=== PATIENT | female | born 1980 | race Caucasian/White ===

== ENCOUNTER 2018-01-26 18:48 | Emergency (ER) | payer BC ==
[2018-01-26] MEDS ORDERED: Cyclobenzaprine 10 MG Tab PO ONE (18:49)
--- NOTE | 2018-01-26 20:18 | EDM.PDOC ---
ED HPI GENERAL MEDICAL PROBLEM - General Chief Complaint: Head Injury Stated Complaint: [id number] CUT FINGER- HEAD AND SHOULDER INJURY 01/22 Time Seen by Provider: 01/26/18 20:15 Source of Information: Reports: Patient History Limitations: Reports: No Limitations - History of Present Illness INITIAL COMMENTS - FREE TEXT/NARRATIVE: This 37 yo female patient reports to the ED with a laceration to her left 4th finger and intermittent "zaps" from her brain. The patient reports she cut her hand while cutting rhubarb just prior to her arrival in the ED. The patient also reports that she fell on Thursday (01/22/18) while playing tag with her 4 year old. Since the fall, the patient has noticed intermittent dizziness and perceived "zaps" down her arms and legs. The patient reports she has these sensations about every 5-20 seconds. The patient describes them as electric zaps. Onset: Today (laceration), Other (head/neck injury (01/22/18)) Location: Reports: Upper Extremity, Left (laceration), Generalized ("zaps") Quality: Reports: Other Severity: Moderate Improves with: Reports: None Worsens with: Reports: None Associated Symptoms: Reports: No Other Symptoms Right Shoulder Pain Score (Numeric/FACES): 7 - Related Data Allergies Allergy/AdvReac Type Severity Reaction Status Date / Time Sulfa (Sulfonamide Allergy Rash Verified 01/26/18 19:48 Antibiotics) Home Meds: Home Meds Multivitamin [Multivitamins] 1 each PO DAILY 01/26/18 [History] Venlafaxine HCl [Venlafaxine ER] 225 mg PO DAILY 01/26/18 [History] 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 ED EXAM, HEAD INJURY - Physical Exam Exam: See Below Exam Limited By: No Limitations General Appearance: Alert, WD/WN, Moderate Distress Head: Atraumatic, Normocephalic Nexus Criteria: No: Posterior, Midline Cervical Tenderness, Evidence of Intoxication, Altered Level of Consciousness, Focal Neurological Deficit, Painful Distraction Injuries Eyes: Bilateral Eye: EOMI, Normal Inspection, PERRL Ears: Normal External Exam, Normal Canal, Hearing Grossly Normal, Normal TMs Nose: Normal Inspection, Normal Mucousa, No Blood Throat/Mouth: Normal Inspection, Normal Lips, Normal Teeth, Normal Gums, Normal Oropharynx, Normal Voice, No Airway Compromise Neck: Non-Tender, Full Range of Motion, Normal Alignment, Normal Inspection Respiratory: No Respiratory Distress, Lungs Clear, Normal Breath Sounds, No Accessory Muscle Use, Chest Non-Tender Cardiovascular: Normal Peripheral Pulses, Regular Rate, Rhythm, No Edema, No Gallop, No JVD, No Murmur, No Rub GI/Abdominal Exam: Normal Bowel Sounds, Soft, Non-Tender, No Organomegaly, No Distention, No Abnormal Bruit, No Mass (Female) Exam: Deferred Rectal (Female) Exam: Deferred Back Exam: Full Range of Motion, Normal Inspection, NT Extremities: Normal Inspection, Normal Range of Motion, Non-Tender, No Pedal Edema, Normal Capillary Refill 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, Alert, Normal Mood/Affect, Oriented x 3 Skin: Normal Color, Warm/Dry - [place] Coma Score Best Eye Response (Sally): (4) Open Spontaneously Best Verbal Response ([place]): (5) Oriented Best Motor Response (Sally): (6) Obeys Commands Sally Total: 15 Course - Vital Signs Last Recorded V/S: Last Vital Signs Temp 36.7 C 01/26/18 19:42 Pulse 106 H 01/26/18 19:42 Resp 18 01/26/18 19:42 BP 126/69 01/26/18 19:42 Pulse Ox 99 01/26/18 19:42 - Orders/Labs/Meds Labs: Laboratory Tests 01/26/18 Range/Units 20:20 Urine HCG, Qual Negative Meds: Medications Discontinued Medications Generic Name Dose Route Start Last Admin Trade Name Freq PRN Reason Stop Dose Admin Ketorolac Tromethamine 30 mg 01/26/18 21:29 Toradol IM 01/26/18 21:30 ONETIME ONE Departure - Departure Time of Disposition: 21:32 Disposition: Home, Self-Care 01 Condition: Fair Clinical Impression: Neuropathy - Discharge Information Instructions: Peripheral Neuropathy Referrals: Lucia Gore MD [Primary Care Provider] - Forms: ED Department Discharge Care Plan Goals: The patient was advised of the examination, lab, CT and x-ray results during the visit. The patient was given an injection of Toradol while in the ED. The patient was discharged with Flexeril (10 mg) #1 to take at bedtime and a script for Toradol (10 mg) #20 to take 1 by mouth every 6 hours and Flexeril (10 mg) # 10 to take 1 by mouth at bedtime as needed. If the patient has any additional symptoms or concerns, the patient should follow-up with her primary care facility or return to the emergency department.
[2018-01-26] MEDS ORDERED: Ketorolac 30 MG/ML SDV IM ONE (21:29)
[2018-01-26] MEDS ORDERED: Cyclobenzaprine 10 MG Tab ONE (21:33)
== END 2018-01-26 21:51 | disposition home or self-care (01) ==
LOC: DL.ED 18:48
DX: G62.9 Polyneuropathy, unspecified (principal); Z88.2 Allergy status to sulfonamides
CPT/HCPCS: 70450; 72125; 73030; 81025; 96372; 99284; A9270; J1885

== ENCOUNTER 2019-08-13 05:35 | Emergency (ER) | payer BC ==
--- NOTE | 2019-08-13 05:46 | EDM.PDOC ---
<Leonides Navarro - Last Filed: 08/13/19 05:44> ED HPI GENERAL MEDICAL PROBLEM - General Chief Complaint: Genitourinary Problem Stated Complaint: KIDNEY HURTS Time Seen by Provider: 08/13/19 05:44 Source of Information: Reports: Patient History Limitations: Reports: No Limitations - History of Present Illness INITIAL COMMENTS - FREE TEXT/NARRATIVE: onset UTI Sx Thursday then last night 11pm left flank pain. denies h/o kidney problems. Bilateral Flank Pain Score (Numeric/FACES): 10 - Related Data Allergies Allergy/AdvReac Type Severity Reaction Status Date / Time Sulfa (Sulfonamide Allergy Rash Verified 08/13/19 05:37 Antibiotics) Home Meds: Home Meds Multivitamin [Multivitamins] 1 each PO DAILY 01/26/18 [History] Venlafaxine HCl [Venlafaxine ER] 225 mg PO DAILY 01/26/18 [History] Past Medical History HEENT History: Reports: Impaired Vision Cardiovascular History: Reports: Arrhythmia, Other (See Below) Other Cardiovascular History: HX OF PVC'S. 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 RIGHT OVARIAN CYST Musculoskeletal History: Reports: Other (See Below) Other Musculoskeletal History: SHOULDER INJURY Neurological History: Reports: None Psychiatric History: Reports: Anxiety, Depression, Panic Attack Endocrine/Metabolic History: Reports: None Hematologic History: Reports: None Immunologic History: Reports: None Oncologic (Cancer) History: Reports: None Dermatologic History: Reports: None - Infectious Disease History Infectious Disease History: Reports: Chicken Pox - Past Surgical History Head Surgeries/Procedures: Reports: None HEENT Surgical History: Reports: None Cardiovascular Surgical History: Reports: None Respiratory Surgical History: Reports: None GI Surgical History: Reports: Appendectomy Female Surgical History: Reports: None Endocrine Surgical History: Reports: None Neurological Surgical History: Reports: None Musculoskeletal Surgical History: Reports: None Oncologic Surgical History: Reports: None Dermatological Surgical History: Reports: None Social & Family History - Family History Family Medical History: Noncontributory - Tobacco Use Smoking Status *Q: Never Smoker - Caffeine Use Caffeine Use: Reports: Coffee, Tea Other Caffeine Use: AVERAGE OF 2 CUPS DAILY - Recreational Drug Use Recreational Drug Use: No ED ROS GENERAL - Review of Systems Review Of Systems: Comprehensive ROS is negative, except as noted in HPI. ED EXAM, RENAL/ - Physical Exam Exam: See Below Exam Limited By: No Limitations General Appearance: Alert, WD/WN, Mild Distress, Other (discomfort). No: Active Emesis Ears: Hearing Grossly Normal Throat/Mouth: Normal Voice, No Airway Compromise Head: Atraumatic Neck: Non-Tender, Full Range of Motion Respiratory/Chest: No Respiratory Distress Cardiovascular: Regular Rate, Rhythm GI/Abdominal: Tender, Other (suprapubic). No: Distended, Guarding, Rigid, Rebound Back Exam: CVA Tenderness (L) Neurological: Alert, Oriented, Normal Cognition, Normal Gait, No Motor/Sensory Deficits Psychiatric: Flat Affect Skin Exam: Warm, Dry, Normal Color Lymphatic: No Adenopathy Course - Vital Signs Last Recorded V/S: Last Vital Signs Temp 36.4 C 08/13/19 05:41 Pulse 95 08/13/19 05:41 Resp 16 08/13/19 05:41 BP 122/88 08/13/19 05:41 Pulse Ox 100 08/13/19 05:41 - Orders/Labs/Meds Orders: Active Orders 24 hr Category Date Time Status Abdomen Pelvis wo Cont [CT] Urgent Exams 08/13/19 06:14 Taken CULTURE URINE [RM] Stat Lab 08/13/19 05:33 Received Labs: Laboratory Tests 08/13/19 08/13/19 08/13/19 Range/Units 05:33 05:33 05:33 WBC (5.0-10.0) 10^3/uL RBC (4.2-5.4) 10^6/uL Hgb (12.0-16.0) g/dL Hct (37.0-47.0) % MCV (80-100) fL MCH (27.0-34.0) pg MCHC (33.0-35.0) g/dL Plt Count (150-450) 10^3/uL Neut % (Auto) (42.2-75.2) % Lymph % (Auto) (20.5-50.1) % [place] % (Auto) (2-8) % Eos % (Auto) (1.0-3.0) % Baso % (Auto) (0.0-1.0) % Sodium (135-145) mmol/L Potassium (3.6-5.0) mmol/L Chloride (101-111) mmol/L Carbon Dioxide (21.0-31.0) mmol/L Anion Gap BUN (7-18) mg/dL Creatinine (0.6-1.3) mg/dL Est Cr Clr Drug Dosing mL/min Estimated GFR (MDRD) BUN/Creatinine Ratio Glucose (74-105) mg/dL Calcium (8.4-10.2) mg/dl Total Bilirubin (0.2-1.0) mg/dL AST (10-42) IU/L ALT (10-60) IU/L Alkaline Phosphatase (42-121) IU/L Total Protein (6.7-8.2) g/dl Albumin (3.2-5.5) g/dl Globulin Albumin/Globulin Ratio Urine Color Yellow (YELLOW) Urine Appearance Cloudy (CLEAR) Urine pH 7.5 (5.0-9.0) Ur Specific [place] 1.015 (1.005-1.030) Urine Protein Trace H (NEGATIVE) Urine Glucose (UA) Negative (NEGATIVE) Urine Ketones Negative (NEGATIVE) Urine Occult Blood Large H (NEGATIVE) Urine Nitrite Negative (NEGATIVE) Urine Bilirubin Negative (NEGATIVE) Urine Urobilinogen 0.2 (0.2-1.0) mg/dL Ur Leukocyte Esterase Large H (NEGATIVE) Urine RBC 5-10 H /HPF Urine WBC 10-20 H (0-5/HPF) /HPF Ur Epithelial Cells Few (NOT SEEN) /HPF Urine Bacteria Few (0-FEW/HPF) /HPF Urine Mucus Few H (NOT SEEN) /LPF Urine HCG, Qual Negative Urine Opiates Screen Negative (NEGATIVE) Ur Oxycodone Screen Negative (NEGATIVE) Urine Methadone Screen Negative (NEGATIVE) Ur Barbiturates Screen Negative (NEGATIVE) U Tricyclic Antidepress Negative (NEGATIVE) Ur Phencyclidine Scrn Negative (NEGATIVE) Ur Amphetamine Screen Negative (NEGATIVE) U Methamphetamines Scrn Negative (NEGATIVE) Urine MDMA Screen Negative (NEGATIVE) U Benzodiazepines Scrn Negative (NEGATIVE) Urine Cocaine Screen Negative (NEGATIVE) U Marijuana (THC) Screen Negative (NEGATIVE) 08/13/19 08/13/19 Range/Units 05:52 05:52 WBC 10.2 H (5.0-10.0) 10^3/uL RBC 4.00 L (4.2-5.4) 10^6/uL Hgb 13.7 (12.0-16.0) g/dL Hct 39.7 (37.0-47.0) % MCV 99.3 D (80-100) fL MCH 34.3 H (27.0-34.0) pg MCHC 34.5 (33.0-35.0) g/dL Plt Count 189 (150-450) 10^3/uL Neut % (Auto) 74.2 (42.2-75.2) % Lymph % (Auto) 17.5 L (20.5-50.1) % [place] % (Auto) 7.1 (2-8) % Eos % (Auto) 1.1 (1.0-3.0) % Baso % (Auto) 0.1 (0.0-1.0) % Sodium 138 (135-145) mmol/L Potassium 4.0 (3.6-5.0) mmol/L Chloride 100 L (101-111) mmol/L Carbon Dioxide 27.0 (21.0-31.0) mmol/L Anion Gap 15.0 BUN 11 (7-18) mg/dL Creatinine 0.6 (0.6-1.3) mg/dL Est Cr Clr Drug Dosing 123.63 mL/min Estimated GFR (MDRD) > 60 BUN/Creatinine Ratio 18.33 Glucose 81 (74-105) mg/dL Calcium 9.8 (8.4-10.2) mg/dl Total Bilirubin 1.9 H (0.2-1.0) mg/dL AST 18 (10-42) IU/L ALT 18 (10-60) IU/L Alkaline Phosphatase 43 (42-121) IU/L Total Protein 8.0 (6.7-8.2) g/dl Albumin 4.9 (3.2-5.5) g/dl Globulin 3.1 Albumin/Globulin Ratio 1.58 Urine Color (YELLOW) Urine Appearance (CLEAR) Urine pH (5.0-9.0) Ur Specific [place] (1.005-1.030) Urine Protein (NEGATIVE) Urine Glucose (UA) (NEGATIVE) Urine Ketones (NEGATIVE) Urine Occult Blood (NEGATIVE) Urine Nitrite (NEGATIVE) Urine Bilirubin (NEGATIVE) Urine Urobilinogen (0.2-1.0) mg/dL Ur Leukocyte Esterase (NEGATIVE) Urine RBC /HPF Urine WBC (0-5/HPF) /HPF Ur Epithelial Cells (NOT SEEN) /HPF Urine Bacteria (0-FEW/HPF) /HPF Urine Mucus (NOT SEEN) /LPF Urine HCG, Qual Urine Opiates Screen (NEGATIVE) Ur Oxycodone Screen (NEGATIVE) Urine Methadone Screen (NEGATIVE) Ur Barbiturates Screen (NEGATIVE) U Tricyclic Antidepress (NEGATIVE) Ur Phencyclidine Scrn (NEGATIVE) Ur Amphetamine Screen (NEGATIVE) U Methamphetamines Scrn (NEGATIVE) Urine MDMA Screen (NEGATIVE) U Benzodiazepines Scrn (NEGATIVE) Urine Cocaine Screen (NEGATIVE) U Marijuana (THC) Screen (NEGATIVE) Meds: Medications Discontinued Medications Generic Name Dose Route Start Last Admin Trade Name Freq PRN Reason Stop Dose Admin Sodium Chloride 1,000 mls @ 999 mls/hr 08/13/19 05:43 08/13/19 06:00 Normal Saline IV 08/13/19 06:43 999 mls/hr .BOLUS ONE Administration Levofloxacin/Dextrose 500 mg/ 100 mls @ 100 mls/hr 08/13/19 06:54 08/13/19 07 :05 Premix IV 08/13/19 07:53 100 mls/hr ONETIME ONE Administration Ketorolac Tromethamine 30 mg 08/13/19 05:43 08/13/19 06:03 Toradol IVPUSH 08/13/19 05:44 30 mg ONETIME ONE Administration Ondansetron HCl 4 mg 08/13/19 05:43 08/13/19 05:58 Zofran IV 08/13/19 05:44 4 mg ONETIME ONE Administration Departure - Departure Disposition: Home, Self-Care 01 Clinical Impression: Pyelonephritis - Discharge Information Instructions: Pyelonephritis, Adult, [id number] Forms: ED Department Discharge Care Plan Goals: The patient was advised of the examination and lab results during the visit. The patient was given an IV dose of Levaquin while in the ED. The patient was discharged with a script for Levaquin (750 mg) #5 to take 1 by mouth daily for 5 days. The patient should increase her oral fluid intake over the next week. If the patient has any additional symptoms or concerns, the patient should follow-up with her primary care facility or return to the emergency department. Sepsis Event Note - Evaluation Sepsis Screening Result: No Definite Risk - Focused Exam Vital Signs: Vital Signs Temp Pulse Resp BP Pulse Ox 08/13/19 05:41 36.4 C 95 16 122/88 100 Date Exam was Performed: 08/13/19 Time Exam was Performed: 05:44 <Dinesh Horn - Last Filed: 08/13/19 08:07> Course - Re-Assessments/Exams Free Text/Narrative Re-Assessment/Exam: 08/13/19 07:20 Patient care was taken over at shift change. The patient reports she continues to have some lower abdominal pain and left flank pain. The patient was getting IV Levaquin for her UTI. The patient was advised of the CT results with no evidence of a kidney stone, but there is a possibility that the stone has already been passed. The patient was also advised of the lab results. After the antibiotics get completed, a reassessment will be made as well as further planning based on how she feels (hospitalization or home treatment). Departure - Departure Time of Disposition: 08:05 Condition: Fair - Discharge Information *PRESCRIPTION DRUG MONITORING PROGRAM REVIEWED*: Not Applicable *COPY OF PRESCRIPTION DRUG MONITORING REPORT IN PATIENT [id number]: Not Applicable Sepsis Event Note - Focused Exam Date Exam was Performed: 08/13/19 Time Exam was Performed: 08:05
[2019-08-13] MEDS: Ondansetron 4 MG/2 ML SDV IV ONE (05:58)
[2019-08-13] MEDS: Sodium Chloride 0.9% 1,000 ML IV ONE (06:00)
[2019-08-13] MEDS: Ketorolac 30 MG/ML SDV IVPUSH ONE (06:03)
[2019-08-13 06:23] LABS: CHLORIDE,CL 100 mmol/L (101-111); SODIUM,NA 138 mmol/L (135-145)
[2019-08-13] MEDS: Levofloxacin/Dextrose 5%-Water 500 MG in Premix Bag 1 BAG IV ONE (07:05)
== END 2019-08-13 08:14 | disposition home or self-care (01) ==
LOC: DL.ED 05:35
DX: R10.9 Unspecified abdominal pain (principal)
CPT/HCPCS: 36415; 74176; 80053; 80305; 81001; 81025; 85025; 87086; 87088; 87186; 96361; 96365; 96375; 99284; J1885; J1956; J2405; J7030

== ENCOUNTER 2024-08-11 05:39 | Day surgery (SDC) | payer BC ==
[2024-08-11] MEDS: Dextrose 5%-0.45% NaCl 1,000 ML IV SCH (05:56)
[2024-08-11] MEDS ORDERED: fentaNYL 100 MCG/2 ML SDV ONE (06:16)
[2024-08-11] MEDS ORDERED: Midazolam 1 MG/ML 2 ML SDV ONE (06:16)
[2024-08-11] MEDS ORDERED: Midazolam 1 MG/ML 2 ML SDV IV ONE (06:16)
[2024-08-11] MEDS ORDERED: fentaNYL 100 MCG/2 ML SDV IV ONE (06:16)
[2024-08-11] MEDS: fentaNYL 100 MCG/2 ML SDV IV ONE ×2 (06:28→06:29)
[2024-08-11] MEDS: Midazolam 1 MG/ML 2 ML SDV IV ONE ×2 (06:29→06:30)
== END 2024-08-11 08:07 | disposition home or self-care (01) ==
LOC: DL.ENDO 05:39
PROVIDERS: ATTEND Internal Medicine Gastroenterology
DX: R10.9 Unspecified abdominal pain (principal); E06.3 Autoimmune thyroiditis; F41.8 Other specified anxiety disorders
CPT/HCPCS: 43239; 81025; J2250; J3010; J7799

== ENCOUNTER 2024-09-02 07:25 | Day surgery (SDC) | payer BC ==
[~2024-09-02 07:25] MED LIST: Midazolam 1 MG/ML 2 ML SDV IV ONE; fentaNYL 100 MCG/2 ML SDV IV ONE
[2024-09-02] MEDS ORDERED: fentaNYL 100 MCG/2 ML SDV ONE (07:56)
[2024-09-02] MEDS: Dextrose 5%-0.45% NaCl 1,000 ML IV SCH (07:56)
[2024-09-02] MEDS ORDERED: Midazolam 1 MG/ML 2 ML SDV ONE (07:56)
[2024-09-02] MEDS: Midazolam 1 MG/ML 2 ML SDV IV ONE ×6 (08:50→08:55)
[2024-09-02] MEDS: fentaNYL 100 MCG/2 ML SDV IV ONE ×4 (08:50→08:58)
== END 2024-09-02 10:31 | disposition home or self-care (01) ==
LOC: DL.ENDO 07:25
PROVIDERS: ATTEND Internal Medicine Gastroenterology
DX: R10.9 Unspecified abdominal pain (principal); K64.8 Other hemorrhoids
CPT/HCPCS: 45378; 81025; J2250; J3010; J7799